=== PATIENT | male | born 1995 | race Caucasian/White ===

== ENCOUNTER 2018-10-12 20:29 | Emergency (ER) | payer OTHER ==
[2018-10-12 20:37] VITALS: BP 137/84
[2018-10-12] MEDS ORDERED: DOCUSATE SODIUM 100 MG CAPSULE BTH_EAR ONE (21:12)
--- NOTE | 2018-10-12 22:55 | ER Document Report ---
ED General - General Chief Complaint: Ear Pain Stated Complaint: LEFT EAR PAIN Time Seen by Provider: 10/12/18 21:12 Mode of Arrival: Ambulatory Information source: Patient TRAVEL OUTSIDE OF THE [place] IN LAST 30 DAYS: No - HPI Patient complains to provider of: Left ear blocked up Onset: Yesterday Onset/Duration: Gradual, Persistent Quality of pain: No pain Severity: None Pain Level: Denies Associated symptoms: None Exacerbated by: Denies Relieved by: Denies Similar symptoms previously: No Recently seen / treated by doctor: No Notes: 23-year-old male coming in today with left ear difficulty hearing and discomfort. Symptoms for the past 2-3 days. No fevers or chills. No dizziness or vertigo. No otorrhea. - Related Data Allergies/Adverse Reactions: No Known Allergies Allergy (Unverified 10/12/18 20:30) Past Medical History - General Information source: Patient - Social History Smoking Status: Never Smoker Chew tobacco use (# tins/day): No Frequency of alcohol use: None Drug Abuse: None Family History: Reviewed & Not Pertinent Patient has suicidal ideation: No Patient has homicidal ideation: No Renal/ Medical History: Denies: Hx Peritoneal Dialysis Review of Systems - Review of Systems Notes: Constitutional: No fevers. No chills. EENT: No eye redness. No eye pain. No ear pain. No sore throat. Diminished auditory left ear Cardiovascular: No chest pain. No palpitations. Respiratory: No cough. No shortness of breath. No respiratory distress. Gastrointestinal: No abdominal pain. No nausea, vomiting, or diarrhea. Genitourinary: Atraumatic. No lesions. No pain. No discharge. Musculoskeletal: Atraumatic. No swelling. No deformities. Skin: No rash or lesions. Lymphatic: No swollen lymph nodes. Neurologic: No headache. No syncope. Psychiatric: No suicidal or homicidal ideation. Physical Exam - Vital signs Vitals: Temp Pulse Resp BP Pulse Ox 98.9 F 89 16 137/84 H 99 10/12/18 20:36 10/12/18 20:36 10/12/18 20:36 10/12/18 20:36 10/12/18 20:36 - Notes Notes: General: Well-developed, well-nourished. In no acute distress. Non-toxic appearing. Cardiac: Well-perfused. Regular rate and rhythm. No murmurs, rubs, or gallops. Pulmonary: No respiratory distress. No cyanosis. Bilateral lung santana are clear to auscultation. Abdominal: Non-distended. Non-rigid. Bowels sounds are present in all four quadrants. No guarding or rebound. HEENT: Left ear canal hard wax impaction. Right ear canal soft wax impaction Neck: Supple. No adenopathy. No meningismus. Dermatologic: Warm with good turgor. No rash. Atraumatic. Chest: Atraumatic. No chest wall tenderness to palpation. Musculoskeletal: Moves all extremities well. No range of motion deficits. no muscular or joint tenderness. No paraspinal muscle tenderness. no midline spinal tenderness or step-off. Genitourinary: Examination deferred Neurologic: No gross neurologic deficits. Psychiatric: Normal mood. Course - Re-evaluation Re-evalutation: 10/12/18 23:00 Left ear canal is completely clear now after irrigation. Right ear canal is still fairly full of soft wax. Will prescribe Cerumenex and have the patient tried to get the remainder of the right ear canal wax out at home. - Vital Signs Vital signs: Temp Pulse Resp BP Pulse Ox 98.9 F 89 16 137/84 H 99 10/12/18 20:36 10/12/18 20:36 10/12/18 20:36 10/12/18 20:36 10/12/18 20:36 Discharge - Discharge Clinical Impression: Bilateral impacted cerumen Condition: Good Disposition: HOME, SELF-CARE Instructions: Cerumen Impaction ([facility]) Prescriptions: Carbamide Peroxide [Debrox 6.5 % Otic Drops 15 ml] 5 drop OT TID #1 bottle Referrals: [facility] [Provider Group] - Follow up as needed
== END 2018-10-12 23:21 | disposition home or self-care (01) ==
LOC: ER 20:29
DX: H61.23 Impacted cerumen, bilateral (principal); H92.02 Otalgia, left ear
CPT/HCPCS: 99282